=== PATIENT | female | born 1975 | race Asian ===

== ENCOUNTER 2018-04-21 15:29 | Emergency (ER) | payer OTHER ==
[~2018-04-21] VITALS: Ht 165.1 cm; Wt 56.7 kg
[2018-04-21 16:21] LABS: PLATELET COUNT 248 K/uL (152-353)
[2018-04-21 16:26] LABS: POTASSIUM 3.8 mmol/L (3.6-5.2)
[2018-04-21 16:47] VITALS: BP 112/76; TEMP 98
== END 2018-04-21 16:47 | disposition home or self-care (01) ==
LOC: ED 15:29
PROVIDERS: Family Medicine
DX: N93.8 Other specified abnormal uterine and vaginal bleeding (principal)
CPT/HCPCS: 36415; 80053; 81000; 81025; 85027; 99283

== ENCOUNTER 2018-07-05 22:51 | Emergency (ER) | payer OTHER ==
[~2018-07-05] VITALS: Ht 165.1 cm; Wt 57.2 kg
[2018-07-05 23:56] VITALS: BP 104/69; TEMP 97.7
== END 2018-07-05 23:58 | disposition home or self-care (01) ==
LOC: ED 22:51
DX: K05.10 Chronic gingivitis, plaque induced (principal); K06.1 Gingival enlargement
CPT/HCPCS: 87651; 99283

== ENCOUNTER 2018-07-16 12:41 | Emergency (ER) | payer OTHER ==
[~2018-07-16] VITALS: Ht 165.1 cm; Wt 54.4 kg
[2018-07-16 12:50] VITALS: TEMP 98.7
[2018-07-16 14:12] LABS: PLATELET COUNT 289 K/uL (152-353)
[2018-07-16 14:18] LABS: POTASSIUM 3.5 mmol/L (3.6-5.2)
[2018-07-16 15:40] VITALS: BP 118/78
== END 2018-07-16 15:40 | disposition home or self-care (01) ==
LOC: ED 12:41
PROVIDERS: Emergency Medicine
DX: F14.951 Cocaine use, unspecified with cocaine-induced psychotic disorder with hallucinations (principal)
CPT/HCPCS: 80053; 80307; 81000; 81025; 85027; 87651; 96372; 99283; J1885

== ENCOUNTER 2018-12-28 09:48 | Emergency (ER) | payer OTHER ==
[~2018-12-28] VITALS: Ht 165.1 cm; Wt 49.9 kg
[2018-12-28 10:55] VITALS: BP 105/61; TEMP 98.8
== END 2018-12-28 10:55 | disposition home or self-care (01) ==
LOC: ED 09:48
DX: N39.0 Urinary tract infection, site not specified (principal)
CPT/HCPCS: 81000; 81025; 87077; 87086; 87088; 87186; 99283

== ENCOUNTER 2019-09-01 22:19 | Emergency (ER) | payer OTHER ==
[~2019-09-01] VITALS: Ht 165.1 cm; Wt 59.0 kg
[2019-09-01 22:47] VITALS: TEMP 98.5
[2019-09-01 23:20] VITALS: BP 104/69
== END 2019-09-01 23:45 | disposition home or self-care (01) ==
LOC: ED 22:19
DX: K08.89 Other specified disorders of teeth and supporting structures (principal); F17.210 Nicotine dependence, cigarettes, uncomplicated
CPT/HCPCS: 96372; 99283; J0696; J1885

== ENCOUNTER 2019-11-18 07:45 | Emergency (ER) | payer OTHER ==
[~2019-11-18] VITALS: Ht 165.1 cm; Wt 54.4 kg
[2019-11-18 08:43] VITALS: BP 106/65; TEMP 99
== END 2019-11-18 08:43 | disposition home or self-care (01) ==
LOC: ED 07:45
DX: N39.0 Urinary tract infection, site not specified (principal); N91.2 Amenorrhea, unspecified
CPT/HCPCS: 81000; 81025; 99283

== ENCOUNTER 2020-06-27 21:11 | Emergency (ER) | payer OTHER ==
[~2020-06-27] VITALS: Ht 165.1 cm; Wt 54.4 kg
[2020-06-27 22:15] VITALS: BP 127/87; TEMP 99.3
== END 2020-06-27 22:17 | disposition home or self-care (01) ==
LOC: ED 21:11
DX: K02.9 Dental caries, unspecified (principal)
CPT/HCPCS: 99282

== ENCOUNTER 2020-09-04 19:28 | Emergency (ER) | payer OTHER ==
[2020-09-12 12:08] LABS: PLATELET COUNT 292 K/uL (152-353)
== END 2020-09-04 21:58 | disposition home or self-care (01) ==
LOC: ED 19:28
PROVIDERS: Emergency Medicine Emergency Medical Services
DX: J20.9 Acute bronchitis, unspecified (principal); R51.9 Headache, unspecified; F19.10 Other psychoactive substance abuse, uncomplicated; F17.210 Nicotine dependence, cigarettes, uncomplicated
CPT/HCPCS: 36415; 80307; 81025; 85027; 96360; 96361; 96365; 96375; 99284

== ENCOUNTER 2020-09-30 21:58 | Emergency (ER) | payer OTHER ==
[~2020-09-30] VITALS: Ht 165.1 cm; Wt 54.4 kg
[2020-09-30 22:10] VITALS: TEMP 98.4
[2020-10-01 01:00] VITALS: BP 115/81
== END 2020-10-01 01:43 | disposition home or self-care (01) ==
LOC: ED 21:58
PROC: 0H91XZZ Drainage of Face Skin, External Approach (ICD-10-PCS; principal; 2020-09-30)
DX: L02.01 Cutaneous abscess of face (principal); L03.211 Cellulitis of face
CPT/HCPCS: 87070; 87077; 87185; 87186; 87205; 96372; 99283; J0696

== ENCOUNTER 2020-10-03 19:45 | Emergency (ER) | payer OTHER ==
[~2020-10-03] VITALS: Ht 165.1 cm; Wt 54.4 kg
[2020-10-03 23:46] VITALS: BP 110/76; TEMP 99.1
== END 2020-10-03 23:46 | disposition home or self-care (01) ==
LOC: ED 19:45
PROC: 0H91XZZ Drainage of Face Skin, External Approach (ICD-10-PCS; principal; 2020-10-03)
DX: L02.01 Cutaneous abscess of face (principal)
CPT/HCPCS: 99283

== ENCOUNTER 2021-01-06 01:57 | Emergency (ER) | payer OTHER ==
[~2021-01-06] VITALS: Ht 165.1 cm; Wt 54.4 kg
[2021-01-06 03:00] VITALS: BP 112/76; TEMP 98.3
== END 2021-01-06 03:00 | disposition home or self-care (01) ==
LOC: ED 01:57
DX: L12.0 Bullous pemphigoid (principal)
CPT/HCPCS: 96372; 99283; J0696; J2930

== ENCOUNTER 2021-02-06 18:18 | Inpatient (IN) | payer OTHER ==
[2021-02-06] VITALS (10 sets, daily range): BP systolic 91–126; BP diastolic 56–78; TEMP 98.3–103.1; Ht 165.1 cm; Wt 56.3 kg
[~2021-02-06] VITALS: Ht 165.1 cm; Wt 56.3 kg
[2021-02-06 19:27] LABS: PLATELET COUNT 201 K/uL (152-353)
[2021-02-06 19:46] LABS: POTASSIUM 3.6 mmol/L (3.6-5.2)
[2021-02-07 04:09] VITALS: BP 98/53; TEMP 102
[2021-02-07 04:59] LABS: PLATELET COUNT 167 K/uL (152-353)
[2021-02-07 05:26] LABS: POTASSIUM 3.2 mmol/L (3.6-5.2)
[2021-02-07 06:35] VITALS: BP 92/49; TEMP 98.4
[2021-02-07 10:35] VITALS: BP 125/69; TEMP 101.6
[2021-02-07 16:00] VITALS: BP 112/67; TEMP 98.5
[2021-02-07 20:00] VITALS: BP 93/61; TEMP 98.7
[2021-02-07 23:51] VITALS: BP 116/74; TEMP 100.5
[2021-02-08 01:50] VITALS: TEMP 99.3
[2021-02-08 04:00] VITALS: BP 99/68; TEMP 98.6
[2021-02-08 04:52] LABS: PLATELET COUNT 173 K/uL (152-353)
[2021-02-08 05:14] LABS: POTASSIUM 3.9 mmol/L (3.6-5.2)
[2021-02-08 08:00] VITALS: BP 115/92; TEMP 98.1
[2021-02-08 12:00] VITALS: BP 109/60; TEMP 98.7
[2021-02-08 16:00] VITALS: BP 133/94; TEMP 98.5
== END 2021-02-08 19:09 | disposition home or self-care (01) | DRG 690 ==
LOC: ED 18:18 → MED/SURG 22:30
PROVIDERS: ADMIT Emergency Medicine Emergency Medical Services; ATTEND Family Medicine
DX: N10 Acute pyelonephritis (principal); B96.20 Unspecified Escherichia coli [E. coli] as the cause of diseases classified elsewhere; F15.10 Other stimulant abuse, uncomplicated; F28 Other psychotic disorder not due to a substance or known physiological condition; D72.828 Other elevated white blood cell count; E86.0 Dehydration
CPT/HCPCS: 36415; 80048; 80053; 80307; 81000; 81025; 83605; 83735; 84100; 85027; 87040; 87077; 87086; 87088; 87186; 87205; 87490; 87590; 87635; 96360; 96361; 96365; 96375; 99284; J0696; J2270; J2405; Q9963; U0003

== ENCOUNTER 2021-10-04 09:15 | Emergency (ER) | payer OTHER ==
[~2021-10-04] VITALS: Ht 165.1 cm; Wt 52.2 kg
[2021-10-04 09:21] VITALS: TEMP 97.8
[2021-10-04] MEDS ORDERED: CLEOCIN150 MG PO (10:14)
[2021-10-04] MEDS ORDERED: PRED20TA27 PO (10:14)
[2021-10-04 10:24] VITALS: BP 110/61
== END 2021-10-04 10:26 | disposition home or self-care (01) ==
LOC: ED 09:15
DX: R21 Rash and other nonspecific skin eruption (principal); C46.0 Kaposi's sarcoma of skin
CPT/HCPCS: 96372; 99283; J1100

== ENCOUNTER 2022-09-02 17:46 | Emergency (ER) | payer OTHER ==
[~2022-09-02] VITALS: Ht 165.1 cm; Wt 54.4 kg
[~2022-09-02 17:46] MED LIST: CLEOCIN150 MG PO; PRED20TA27 PO
[2022-09-02 17:55] VITALS: BP 106/71; TEMP 98.1
== END 2022-09-02 18:15 | disposition home or self-care (01) ==
LOC: ED 17:46
DX: K02.9 Dental caries, unspecified (principal); K04.7 Periapical abscess without sinus; F15.90 Other stimulant use, unspecified, uncomplicated; F17.210 Nicotine dependence, cigarettes, uncomplicated
CPT/HCPCS: 99282